=== PATIENT | female | born 1990 ===

== ENCOUNTER 2017-07-05 09:06 | Day surgery (SDC) | payer OTHER ==
[2017-06-23 13:06] VITALS: BMI 23.2
--- NOTE | 2017-07-05 10:14 | HP ---
[facility] - Chief Complaint Chief Complaint: left shoulder pain - Past Medical History Allergies/Adverse Reactions: Allergies Allergy/AdvReac Type Severity Reaction Status Date / Time No Known Drug Allergies Allergy Verified 07/05/17 09:54 ...LMP: 06/06/17 - Current Medications Current Medications: Home Medications Medication Instructions Recorded Tramadol HCl 50 mg PO Q6H PRN #40 tab MDD 4 07/05/17 Satellite Physical Exam - Physical Examination Vital Signs: Vital Signs Period Temp Pulse Resp BP Sys/Amin Pulse Ox Last 24 Hr 97.9 F 61 18 101/57 100 General Appearance: Well Nourished, Well Developed, Alert & Oriented x3 ENT: Clear Lung: Normal air movement Heart: Regular rate & rhythm Extremities: Other (left shoulder- + ttp, decr rom, + neer, + perez, nvi MRI + impingement) Neurological: Intact, Alert, Oriented [facility] Impression/Plan - Impression/Plan Impression: left shoulder impingement Operative Procedure: left shoulder arthroscopy SAD Date to be Performed: 07/05/17
[2017-07-05] MEDS ORDERED: PROPOFOL 20 ML ONE ×3 (11:47)
[2017-07-05] MEDS ORDERED: ROCURONIUM BROMIDE 50 MG/5 ML VIAL ONE (11:47)
[2017-07-05] MEDS ORDERED: MIDAZOLAM HCL 2 MG/2 ML SINGLE DOSE VIAL ONE ×3 (11:49→11:53)
[2017-07-05] MEDS ORDERED: oxyCODONE HCL 5 MG TABLET PO PRN (12:58)
[2017-07-05] MEDS ORDERED: ceFAZolin SODIUM 1 GM VIAL IVPB ONE (12:58)
[2017-07-05] MEDS ORDERED: ONDANSETRON 4 MG/2 ML VIAL IVPUSH PRN (12:58)
[2017-07-05] MEDS ORDERED: LACTATED RINGERS SOLUTION 1,000 ML IV SCH (13:00)
[2017-07-05] MEDS ORDERED: BUPIVACAINE HCL/PF 0.5% (5MG/ML) 10 ML VIAL ONE (13:01)
--- NOTE | 2017-07-05 13:43 | OP ---
Operative Note - Note: Operative Date: 07/05/17 ([facility]) Pre-Operative Diagnosis: left shoulder impingement Operation: left shoulder arthroscopy with SAD, DCE Post-Operative Diagnosis: Same as Pre-op Surgeon: Darrell Mackenzie [employer] Nailer: Diaz Henry Anesthesiologist/[employer] ARTISTIC DIRECTOR: Nain Young Anesthesia: General, Local Specimens Removed: shavings Estimated Blood Loss (mls): 5 Operative Report Dictated: Yes
[2017-07-05] MEDS ORDERED: ROPIVACAINE HCL 0.5% 30ML VIAL ONE (14:08)
[2017-07-05 14:57] VITALS: TEMP 97.6
[2017-07-05 16:27] VITALS: BP 117/65; PULSE 75
--- NOTE | 2017-07-06 09:45 | OP ---
DATE OF OPERATION: 07/05/2017 PREOPERATIVE DIAGNOSES: Left shoulder subacromial impingement/bursitis and acromioclavicular joint arthritis. POSTOPERATIVE DIAGNOSES: Left shoulder subacromial impingement/bursitis and acromioclavicular joint arthritis. PROCEDURE: Left shoulder arthroscopy, subacromial decompression, and distal clavicle excision. SURGEON: Chiquis Joel MD HOSPITAL UNIT COORDINATOR: KELLI Dubon ANESTHESIOLOGIST: Nain Young CRNA ANESTHESIA: Left interscalene block, local injection of 10 mL 0.50% Marcaine to the posterior portal, and LMA anesthesia. DRAINS: None. COMPLICATIONS: None. BLOOD LOSS: None. BLOOD GIVEN: None. FLUID REPLACEMENT: 500 mL Plasmalyte. INDICATION FOR PROCEDURE: This patient is a 26-year-old female with recurrent left shoulder impingement and pain. After understanding the potential risks, complications, alternatives, and benefits of surgery versus nonsurgical treatment, the patient elected to undergo this procedure. DESCRIPTION OF PROCEDURE: The patient was brought to the operating room. Peripheral IV placed. IV sedation given. One gram of IV Ancef was given. A left interscalene block was performed. She was placed into the beach chair position with ample padding throughout. LMA anesthesia was induced. The left upper extremity was prepped and draped in sterile fashion. Bony landmarks were marked out with a marking pen. Posterior portal established. Diagnostic glenohumeral arthroscopy was performed. Overall, the joint side looked good. There was no arthritis. The labrum looked fine. The biceps tendon looked fine. There was no glenohumeral osteoarthritis. There were no loose bodies. There was a very small, partial, undersurface, mid-supraspinatus tear. There was just some fraying on the undersurface of the supraspinatus. I would estimate it was 2% of the thickness of the supraspinatus, and therefore, an anterior portal was established and a shaver was introduced into the glenohumeral joint and this very small, undersurface rotator cuff tear was debrided. I do not think this was causing her symptoms. Next, our attention turned to the subacromial space. A lateral portal was established under direct visualization. A soft tissue bursectomy was performed. This revealed a large subacromial spur and a large subclavicular spur. Photographs were taken. Using a combination of the 5.5-mm oval bur, the straight shaver, and the ArthroCare wand, a bony decompression and subclavicular excision were done. I fine-tuned it in reverse, used the shaver. Overall, it was quite flat, looked good. I put the arm through a full range of motion, and there were no points of impingement. As mentioned, the undersurface of the distal clavicle was excised as well. All debris was removed. The top surface of the rotator cuff was pristine. The area was copiously irrigated and washed out. All instrumentation was removed. Excess saline was removed. Arthroscopy portals closed with 3-0 nylon suture. The area was then washed and dried, covered with Aquacel. She was put into a sling, extubated, brought out of the beach chair position, brought to the ambulatory recovery room in stable condition. Total operative time was about 45 minutes. There were no complications during the case. The patient tolerated the procedure very well and was brought to the ambulatory recovery room in stable condition. CHIQUIS JOEL M.D. [id number]
--- NOTE | 2017-07-07 12:08 | PATH ---
Surgical Pathology Report Patient Name: GARCÍA MCGHEE [facility]. Rec. #: [id number] /Age/Gender: 1990 (Age: 26) / F Account: [id number] Location: [facility] SURGICAL Taken: 07/05/2017 Received: 07/06/2017 Reported: 07/07/2017 Physicians: Darrell Mackenzie M.D. Specimen(s) Received LEFT SHOULDER SHAVINGS Clinical History Left shoulder tear Final Diagnosis LEFT SHOULDER, ARTHROSCOPIC SHAVING: PORTIONS OF SYNOVIUM, CARTILAGE, SKELETAL MUSCLE AND BONE CONSISTENT WITH ARTHROSCOPIC SHAVINGS. Electronically Signed Tomas Brothers M.D. Gross Description Received in formalin, labeled "left shoulder shaving," is a 3.3 x 3.0 x 0.4 cm. aggregate of gabriel-yellow soft tissue fragments. A plastic products sales representative portion is submitted in one cassette. 07/06/201707/06/2017
== END 2017-07-05 16:25 | disposition home or self-care (01) ==
LOC: JASU-SURG 09:06
PROVIDERS: ATTEND Orthopaedic Surgery
PROC: 0PBB4ZZ Excision of Left Clavicle, Percutaneous Endoscopic Approach (ICD-10-PCS; 2017-07-05)
PROC: 0RBK4ZZ Excision of Left Shoulder Joint, Percutaneous Endoscopic Approach (ICD-10-PCS; principal; 2017-07-05 11:00)
DX: M75.42 Impingement syndrome of left shoulder (principal); M71.9 Bursopathy, unspecified; M19.012 Primary osteoarthritis, left shoulder
CPT/HCPCS: 84703; 88304-TC; 94760